=== PATIENT | female | born 1985 | race Two or more races ===

== ENCOUNTER 2020-11-09 13:21 | Outpatient (REF) | payer OTHER, SELFPAY | END 2020-11-09 13:22 | disposition home or self-care (01) | LOC: HO.LAB 13:21 | PROVIDERS: Visit Provider Internal Medicine | DX: Z20.822 Contact with and (suspected) exposure to COVID-19 (principal) | CPT/HCPCS: C9803; U0003; U0005 ==

== ENCOUNTER 2021-01-13 10:09 | Emergency (ER) | payer OTHER, SELFPAY ==
--- NOTE | ~2021-01-13 | XR_ITS ---
EXAMINATION: XR LUMBOSACRAL SPINE CLINICAL INFORMATION: Low back pain radiating to right lower extremity. COMPARISON: None TECHNIQUE: Three views of the lumbosacral spine. FINDINGS: There is transitional vertebrae at L5 with bilateral sacralization. 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 There is a mild dextrocurvature with normal lumbar lordosis. The vertebral bodies are normal in height. There is no lumbar vertebral compression, spondylolisthesis, disc narrowing, destructive process, or erosive changes. The SI joints and remainder of sacrum are unremarkable. XR/XR lumbar spine 2-3V IMPRESSION: 1. 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 2. No lumbar vertebral compression, spondylolisthesis, or disc narrowing.
[2021-01-13 10:24] VITALS: BP 113/77; PULSE 80; RESP 16; TEMP 36.5; O2SAT 98; BMI 31.1
--- NOTE | 2021-01-13 10:50 | ED_ITS ---
HPI - Back Pain/Injury General Chief Complaint: Back Pain/Injury Stated Complaint: low back pain Time Seen by Provider: 01/13/21 10:29 Source: patient Mode of arrival: ambulatory Limitations: language barrier (Citizen Of [place]Speaking) History of Present Illness MD elicited complaint: back pain Onset (ago): week(s) (1) Timing: constant and progressively worsening Severity: moderate Similar Symptoms Previously: No Quality: aching Location: lumbar spine Radiation: buttocks, right upper leg and right leg below the knee Exacerbating factors: movement, sitting upright, walking and lifting Relieving factors: none Context: unknown (Although reports that she has 6 kids at home the youngest is 6 years although this will be 18) Associated symptoms: denies other symptoms Treatments prior to arrival: NSAIDS and acetaminophen Work related injury: No Related Data Previous Rx's Medication Instructions Recorded diazepam 10 mg tablet (Valium) 10 mg PO TID PRN #10 tab 01/13/21 ibuprofen 800 mg tablet 800 mg PO Q8H PRN #14 tab 01/13/21 lidocaine 5 % topical patch 1 patch TOPICAL DAILY #15 ea 01/13/21 (Lidoderm) oxycodone 5 mg tablet 5 mg PO Q6H PRN #14 tab 01/13/21 prednisone 20 mg tablet 40 mg PO DAILY 5 Days #10 tab 01/13/21 Allergies Allergy/AdvReac Type Severity Reaction Status Date / Time No Known Allergies Allergy Verified 01/13/21 10:24 Review of Systems Review of Systems: Constitutional : No trauma, No Weight loss, No Fever, No Chills, ENT/Mouth : No Hearing loss, No Ear Pain, No Nasal Congestion, No Sinus Pain, No Hoarseness, No sore throat, No Rhinorrhea, No Swallowing Difficulty Cardiovascular : No Chest Pain, No SOB Respiratory : No Cough, No Dyspnea Gastrointestinal : No Nausea, No Vomiting, No Diarrhea, No abdominal Pain, No Hematochezia, No Melena Genitourinary : No Dysuria, No Urinary Frequency, No Hematuria, No Urinary or Bowel Incontinence/retention Musculoskeletal : + Back pain, No neck pain, No joint stiffness, No joint swelling Skin : No Skin Lesions, No rash or signs of infection Neuro : No Weakness, + radiation, No Numbness, No Paresthesias, No headache, no loss of bowel or bladder incontinence, no saddle anesthesia, Focal weakness, No radiation Denies history of IV drug usage. Yes all other systems are reviewed and are negative [facility] Past Medical History Attestation statement: The following information was validated with the patient. Medical History Anxiety Asthma Bipolar 1 disorder Depression Social History Social History Advance Directives: No Patient : No Physical Exam Vital Signs: Vital Signs: Last Vital Signs Temp 97.7 F 01/13/21 10:24 Pulse 80 01/13/21 10:24 Resp 16 01/13/21 10:24 BP 113/77 01/13/21 10:24 Pulse Ox 98 01/13/21 10:24 Body Mass Index 31.1 vital signs have been reviewed as normal and appeared to be correct. Blood pressure normal. Heart rate normal. Respiration rate normal. Temperature normal. Oxygen saturation normal. Appearance: Alert. Oriented X3. No acute distress. Head: Normal external exam. Normocephalic. Atraumatic. Eyes: PERRLA. EOMI. Conjunctiva and sclera normal. Eyelids normal. ENT: Pharynx normal. Uvula midline. Moist mucous membranes. Neck: Normal inspection. Neck supple. FROM. No adenopathy. Thyroid Normal. No meningeal signs. No neck mass noted. CVS: Normal heart rate and rhythm. Heart sound normal. No murmurs noted. Pulses normal throughout. Respiratory: No respiratory distress. Painless inspiration. Breath sounds normal. No wheezes/rales/rhonchi noted. Chest nontender. No accessory muscle usage noted or decreased air movement noted. Abdomen: Soft and nontender. Bowel sounds normal in all 4 quadrants. No distention noted. No organomegaly noted. No visible injury noted. Back: No CVA tenderness. Full range of motion noted. No obvious deformities, or edema. Mild para-spinal muscular tenderness from lumbar region to coccyx. Full ROM in back and lower extremities. 5/5 strength hip extension/flexion, abduction, adduction. Mild Lumbar pain with hip flexion against resistance. Straight leg raise test negative on right; Straight leg raise test negative on left; Reflexes normal ankle and knee bilaterally; EHL motor strength normal bilaterally. No rashes/lesion/induration/fluctuance or signs infection noted. Skin: Skin warm and dry. Normal skin color. Normal skin turgor. No rashes/lesions/lacerations noted. Extremities: Extremities exhibit normal range of motion. Extremities nontender. Neuro: Oriented X 3. No motor deficit. No sensory deficit. Reflexes normal. Patient has a normal steady gait. Course Course Course Narrative: Pt c likely muscular pain, but could be herniated disc. Neuro exam shows no deficits. Not c/w AAA/epidural abscess/dissection.No high risk Hx (Incont, fever, immunosupp, recent surgery/LP, coag, signif trauma, wt loss, puls mass, hx/o Ca, TB, or IVDU) to warrant MRI/CT today. Not c/w Pyelo/UTI/kidney stone/spinal fx. Not cauda equina syndrome. Imaging not currently indicated although patient requesting x-rays reports that she has never had this pain in the past I explained to her that most likely she has herniated possibly sciatica will treat symptomatically if x-ray negative will DC home with symptomatic treatment instructions return if any new or worsening symptoms to follow up with primary care provider. Patient understands agrees with this plan. MDM - Back Pain/Injury Medical Records Attestation: I reviewed the patient's medical records. Imaging Data Lumbar spine x-ray: Attestation: I personally reviewed and interpreted this imaging study as follows: Radiologist's impression: FINDINGS: There is transitional vertebrae at L5 with bilateral sacralization. 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 There is a mild dextrocurvature with normal lumbar lordosis. The vertebral bodies are normal in height. There is no lumbar vertebral compression, spondylolisthesis, disc narrowing, destructive process, or erosive changes. The SI joints and remainder of sacrum are unremarkable. XR/XR lumbar spine 2-3V IMPRESSION: ? 1. 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 2. No lumbar vertebral compression, spondylolisthesis, or disc narrowing. Discharge Plan Discharge Clinical Impression: Lumbar radiculopathy, Strain of lumbar region Patient Disposition: Home, Self-Care Instructions: Low Back Strain (ED), Lumbar Radiculopathy (ED) Prescriptions: New ibuprofen 800 mg tablet 800 mg PO Q8H PRN (Reason: pain) Qty: 14 RF: 0 prednisone 20 mg tablet 40 mg PO DAILY 5 Days Qty: 10 RF: 0 lidocaine [Lidoderm] 5 % adhesive patch,medicated 1 patch topical DAILY Qty: 15 RF: 0 diazepam [Valium] 10 mg tablet 10 mg PO TID PRN (Reason: muscle spasm) Qty: 10 RF: 0 oxycodone 5 mg tablet 5 mg PO Q6H PRN (Reason: pain) Qty: 14 RF: 0 Referrals: Physician,Unknown J [Primary Care Provider] - 2 days (Your pcp) Print Language: Citizen Of [place]
[2021-01-13] MEDS: oxyCODONE HCl Immed Release 5 MG TABLET PO (11:03)
[2021-01-13] MEDS: diazePAM 5 MG TABLET PO (11:03)
[2021-01-13] MEDS: Ibuprofen 800 MG TABLET PO (11:03)
== END 2021-01-13 11:40 | disposition home or self-care (01) ==
PROVIDERS: Emergency Provider Emergency Medicine
DX: M54.16 Radiculopathy, lumbar region (principal); Z79.899 Other long term (current) drug therapy
CPT/HCPCS: 72100; 99283